=== PATIENT | male | born 1980 | race African-American/Black ===

== ENCOUNTER 2018-01-30 20:18 | Emergency (ER) | payer OTHER ==
[~2018-01-30] VITALS: Ht 193 cm; Wt 74.8 kg
[~2018-01-30 20:18] MED LIST: ALBUTEROL2.5 MG/3 M INH
[2018-01-30 20:40] VITALS: BP 117/78
[2018-01-30] MEDS ORDERED: ALBUTEROL SULF8.5 GM INH (20:51)
[2018-01-30 21:00] VITALS: BP 117/78
--- NOTE | 2018-01-30 23:04 | Emergency Room Report ---
History of Present Illness General Chief Complaint: Medical Clearance Source: Patient Present Illness HPI Patient is a 37-year-old male brought in by [facility] for medical clearance. The patient was having prior history of asthma. He denies any current difficulty breathing. Patient states he also has history of schizophrenia. He reports taking Zyprexa in the past. The patient states that he does have the history of brain surgery and is chronically ill. Patient denies any recent trauma. Allergies: Coded Allergies: No Known Allergies (Unverified , 03/03/15) Patient History Past Medical History: see triage record Reviewed Nursing Documentation: PMH: Agreed; PSxH: Agreed Nursing Documentation-PMH Hx Asthma: Yes Review of Systems All Other Systems: negative except mentioned in HPI Physical Exam Vital Signs Date Time Temp Pulse Resp B/P (MAP) Pulse Ox O2 Delivery O2 Flow Rate FiO2 01/30/18 20:10 98.0 113 20 117/78 98 Room Air 98.1 General Appearance: alert, GCS 15, thin, Chronically Ill Neck: normal inspection, full range of motion Respiratory: normal inspection, chest non-tender, lungs clear Cardiovascular #1: normal inspection, regular rate, rhythm Gastrointestinal: normal inspection, non tender, soft Musculoskeletal: normal inspection, back normal Neurologic: normal inspection, alert, oriented x3, responsive, public opinion survey taker III-XII nml as tested Skin: abrasions - bilateral wrist abrasion near handcuffs Medical Decision Making Diagnostic Impression: Primary Impression: Asthma Additional Impression: Schizophrenia ER Course Patient presented for medical clearance. The patient does not appear to have any external source of trauma. His lung appear to be clear and he appears to be moving air well. The patient is medically cleared for booking. [facility] was advised that patient would likely need further psychiatric evaluation while in custody. The patient does not appear to require medications at this time. The patient specifically denies suicidal thoughts. Last Vital Signs Date Time Temp Pulse Resp B/P (MAP) Pulse Ox O2 Delivery O2 Flow Rate FiO2 01/30/18 21:00 98.1 94 18 117/78 98 Room Air 98.1 Status: improved Disposition: D/C TO LAW [facility] IN [facility] Condition: Stable Scripts Albuterol Sulfate* (ALBUTEROL SULFATE MDI*) 8.5 Gm Hfa.aer.ad 2 PUFF INH Q4H PRN for cough/wheezing, #1 EA 0 Refills Prov: Wilbert Edourad MD 01/30/18 Referrals: NOT CHOSEN IPA/,REFERRING (PCP) Departure Forms: Prison Clearance Patient Instructions: Asthma, Adult Wilbert Edouard MD Jan 30, 2018 23:04
== END 2018-01-30 21:00 ==
LOC: EDBD 20:18 → EMR 20:25
DX: Z02.89 Encounter for other administrative examinations (principal); J45.909 Unspecified asthma, uncomplicated; F20.9 Schizophrenia, unspecified
CPT/HCPCS: 99283